=== PATIENT | female | born 1940 | race Caucasian/White ===

== ENCOUNTER → 2019-12-23 10:40 | Outpatient (BNVA) | payer MEDICARE, MEDICAID, SELFPAY | PROVIDERS: PCP Internal Medicine; Referring Provider Internal Medicine; Visit Provider Nurse Practitioner Gerontology | DX: E11.65 Type 2 diabetes mellitus with hyperglycemia (principal); E11.40 Type 2 diabetes mellitus with diabetic neuropathy, unspecified; I10 Essential (primary) hypertension; E78.5 Hyperlipidemia, unspecified; Z79.4 Long term (current) use of insulin | CPT/HCPCS: 82947; 95250; 99213 ==

== ENCOUNTER → 2020-01-06 11:05 | Outpatient (BNVA) | payer MEDICARE, MEDICAID, SELFPAY | PROVIDERS: PCP Internal Medicine; Referring Provider Internal Medicine; Visit Provider Nurse Practitioner Gerontology | DX: E11.65 Type 2 diabetes mellitus with hyperglycemia (principal); I10 Essential (primary) hypertension; E78.5 Hyperlipidemia, unspecified; Z79.4 Long term (current) use of insulin | CPT/HCPCS: 82947; 99213 ==

== ENCOUNTER → 2020-02-10 10:06 | Outpatient (BNVA) | payer MEDICARE, MEDICAID, SELFPAY | PROVIDERS: PCP Internal Medicine; Referring Provider Internal Medicine; Visit Provider Nurse Practitioner | DX: R63.4 Abnormal weight loss (principal); R63.0 Anorexia; G30.9 Alzheimer's disease, unspecified; F02.80 Dementia in other diseases classified elsewhere, unspecified severity, without behavioral disturbance, psychotic disturbance, mood disturbance, and anxiety | CPT/HCPCS: 99212; Q3014 ==

== ENCOUNTER → 2020-03-10 10:34 | Outpatient (BNVA) | payer MEDICARE, MEDICAID, SELFPAY | PROVIDERS: PCP Internal Medicine; Visit Provider Nurse Practitioner Gerontology | DX: E11.65 Type 2 diabetes mellitus with hyperglycemia (principal); E11.40 Type 2 diabetes mellitus with diabetic neuropathy, unspecified; Z79.4 Long term (current) use of insulin; I10 Essential (primary) hypertension; E78.5 Hyperlipidemia, unspecified | CPT/HCPCS: Q3014 ==

== ENCOUNTER → 2020-04-13 08:34 | Outpatient (BNVA) | payer MEDICARE, MEDICAID, SELFPAY | PROVIDERS: PCP Internal Medicine; Visit Provider Nurse Practitioner Gerontology | DX: E11.65 Type 2 diabetes mellitus with hyperglycemia (principal); Z79.4 Long term (current) use of insulin; I10 Essential (primary) hypertension; E78.5 Hyperlipidemia, unspecified | CPT/HCPCS: 99212; Q3014 ==

== ENCOUNTER 2020-05-25 15:01 | Outpatient (REF) | payer MEDICARE, MEDICAID, SELFPAY ==
--- NOTE | ~2020-05-25 | MM_ITS ---
EXAMINATION: MM SCREENING DIGITAL BREAST TOMOSYNTHESIS, BILATERAL CLINICAL INFORMATION: Screening. Asymptomatic. The lifetime risk of breast cancer based on the Tyrer-Cuzick Model is 1.2%. COMPARISON: Mammography: April 24, 2019 and studies dating back to October 11, 2011 TECHNIQUE: Digital breast tomosynthesis is performed in both the craniocaudal and mediolateral oblique views along with computer-aided detection (CAD). Synthesized 2D images are generated from the tomosynthesis. Additional left exaggerated craniocaudal view performed. FINDINGS: There are scattered areas of fibroglandular density (ACR BI-RADS breast composition Category b). There are no significant masses, abnormal calcifications, or other abnormalities. MM/MM tomosynthesis screening BI IMPRESSION: There are no significant changes from prior study. ASSESSMENT: BI-RADS 1: Negative RECOMMENDATION: Routine annual mammography screening. This patient's information was entered into a reminder system with a target due date for their next mammogram.
== END 2020-05-25 15:02 | disposition home or self-care (01) ==
LOC: HO.MAMMO 15:01
PROVIDERS: Visit Provider Internal Medicine
DX: Z12.31 Encounter for screening mammogram for malignant neoplasm of breast (principal)
CPT/HCPCS: 77063; 77067

== ENCOUNTER → 2020-07-27 11:07 | Outpatient (BNVA) | payer MEDICARE, MEDICAID, SELFPAY | PROVIDERS: PCP Internal Medicine; Referring Provider Internal Medicine; Visit Provider Nurse Practitioner | DX: G30.9 Alzheimer's disease, unspecified (principal); F02.80 Dementia in other diseases classified elsewhere, unspecified severity, without behavioral disturbance, psychotic disturbance, mood disturbance, and anxiety; D12.6 Benign neoplasm of colon, unspecified; R63.0 Anorexia; R63.6 Underweight; R63.4 Abnormal weight loss | CPT/HCPCS: 99212 ==

== ENCOUNTER → 2020-08-20 14:05 | Outpatient (BNVA) | payer MEDICARE, MEDICAID, SELFPAY | PROVIDERS: PCP Internal Medicine; Visit Provider Nurse Practitioner Gerontology | DX: E11.65 Type 2 diabetes mellitus with hyperglycemia (principal); E11.42 Type 2 diabetes mellitus with diabetic polyneuropathy; E11.649 Type 2 diabetes mellitus with hypoglycemia without coma; I10 Essential (primary) hypertension; E78.5 Hyperlipidemia, unspecified; R41.0 Disorientation, unspecified; Z88.7 Allergy status to serum and vaccine; Z88.8 Allergy status to other drugs, medicaments and biological substances; Z98.51 Tubal ligation status; Z79.4 Long term (current) use of insulin; Z79.899 Other long term (current) drug therapy | CPT/HCPCS: 82947; 83036; 99212 ==

== ENCOUNTER 2020-08-21 10:51 | Outpatient (REF) | payer MEDICARE, MEDICAID, SELFPAY ==
[2020-08-21 11:28] LABS: Hematocrit 36.5 % (37-47); Hemoglobin 11.7 g/dl (12.0-16.0); Mean Corpuscular HGB Conc 32.1 g/dl (31.0-35.0); Mean Corpuscular Hemoglobin 31.1 pg (27.0-33.0); Mean Corpuscular Volume 97.1 fL (80-98); Platelet Count 274 X10*3/uL (160-400); Red Blood Count 3.76 X10*6/uL (4.20-5.50); Red Cell Distribution Width 13.3 % (11.0-16.0); White Blood Count 8.9 X10*3/uL (4.8-10.8)
[2020-08-21 11:30] LABS: Estimated Average Glucose 143 mg/dL; Hemoglobin A1c % 6.6 %
[2020-08-21 11:46] LABS: Alanine Aminotransferase 30 U/L (0-31); Albumin Level 4.3 g/dL (3.5-5.0); Alkaline Phosphatase 73 U/L (39-117); Anion Gap 16 (12-20); Aspartate Amino Transferase 24 U/L (5-31); Bilirubin Total 0.7 mg/dL (0.0-1.0); Blood Urea Nitrogen 13 mg/dL (9-16); Calcium 9.9 mg/dL (8.4-10.2); Carbon Dioxide 21 mmol/L (22-29); Chloride 108 mmol/L (96-108); Cholesterol 125 mg/dL; Estimated Glomerular Filt Rate 50; Glucose Fasting 118 mg/dL (60-99); HDL Cholesterol 43 mg/dL; LDL Cholesterol Calculated 43 mg/dl; Potassium 4.3 mmol/L (3.3-5.1); Sodium 141 mmol/L (135-145); Total Protein 7.3 g/dL (6.5-8.0); Triglycerides 195 mg/dL
[2020-08-21 11:51] LABS: Band Neutrophils Percent 1 % (3-5); Eosinophils Absolute Manual 2.5 X10*3/UL (0.0-0.8); Eosinophils Percent Manual 28 % (0-4); Lymphocytes Absolute Manual 3.2 X10*3/uL (0.6-4.8); Lymphocytes Percent Manual 36 % (20-40); Monocytes Absolute Manual 0.2 X10*3/uL (0.0-1.2); Monocytes Percent Manual 2 % (2-11); Neutrophils Percent Manual 33 % (45-73)
[2020-08-21 11:52] LABS: RBC Morphology NOTED
[2020-08-21 11:53] LABS: Acanthocytes 1+ (0-2) /OIF; Macrocytosis 1+ (5-14) /OIF; Ovalocytes 1+ (5-14) /OIF; Platelet Estimate NORMAL (NORMAL); Platelet Morphology Comment NORMAL
[2020-08-21 12:05] LABS: Thyroid Stimulating Hormone 2.98 uIU/mL (0.32-4.0)
[2020-08-23 08:39] LABS: Folate 6.5 ng/mL (> or = 4.0); Vitamin B12 670 pg/mL (200-900)
[2020-08-27 13:52] LABS: Vitamin D 25-OH, D2 <4 ng/mL; Vitamin D 25-OH, D3 51 ng/mL; Vitamin D 25-OH, Total 51 ng/mL (30-100)
== END 2020-08-21 10:52 | disposition home or self-care (01) ==
LOC: HO.LAB 10:51
PROVIDERS: Absent Provider Internal Medicine; PCP Internal Medicine; Visit Provider Nurse Practitioner Gerontology
DX: E11.65 Type 2 diabetes mellitus with hyperglycemia (principal); E55.9 Vitamin D deficiency, unspecified; R53.82 Chronic fatigue, unspecified; E11.40 Type 2 diabetes mellitus with diabetic neuropathy, unspecified; E78.5 Hyperlipidemia, unspecified; Z79.4 Long term (current) use of insulin
CPT/HCPCS: 36415; 80053; 80061; 82306; 82607; 82746; 83036; 84443; 85007; 85027

== ENCOUNTER 2020-08-23 | Outpatient (REF) | payer MEDICARE, MEDICAID, SELFPAY ==
[2020-08-24 10:07] LABS: Microalbum/Creatinine Ratio Ur 19.8 ug/mg cr
== END 2020-08-23 00:01 | disposition home or self-care (01) ==
LOC: HO.LNP
PROVIDERS: Visit Provider Internal Medicine
DX: E11.65 Type 2 diabetes mellitus with hyperglycemia (principal)
CPT/HCPCS: 82043

== ENCOUNTER 2020-08-24 08:55 | Outpatient (REF) | payer MEDICARE, MEDICAID, SELFPAY | END 2020-08-24 08:56 | disposition home or self-care (01) | LOC: HO.LNP 08:55 | PROVIDERS: Visit Provider Internal Medicine | DX: Z13.89 Encounter for screening for other disorder (principal) ==

== ENCOUNTER → 2020-08-30 13:30 | Outpatient (BNVA) | payer MEDICARE, MEDICAID, SELFPAY | PROVIDERS: PCP Internal Medicine; Visit Provider Nurse Practitioner Gerontology | DX: E11.649 Type 2 diabetes mellitus with hypoglycemia without coma (principal); E78.5 Hyperlipidemia, unspecified; I10 Essential (primary) hypertension | CPT/HCPCS: 82947; 99212 ==

== ENCOUNTER 2021-01-23 12:10 | Emergency (ER) | payer MEDICARE, MEDICAID, SELFPAY ==
--- NOTE | ~2021-01-23 | CT_ITS ---
EXAMINATION: CT HEAD/BRAIN WITHOUT CONTRAST CLINICAL INFORMATION: Fall COMPARISON: April 22, 2015 and August 10, 2018 TECHNIQUE: CT scanning from base of skull to vertex performed without IV contrast administration. This CT examination was performed using dose optimization techniques as appropriate, variously including the following: *Automated exposure control *Adjustment of mA and/or kV according to patient size (this includes techniques or standardized protocols for targeted exams where dose is matched to indication/reason for exam; i.e. extremities or head) *Use of iterative reconstruction technique DLP: 546.9 mGy-cm. FINDINGS: The ventricles, sulci, and cisterns are prominent symmetrically and it was a large amount of periventricular white matter low density consistent with microangiopathy and generalized atrophy. No abnormal extra-axial fluid collection or intracranial hemorrhage is seen. No significant mass effect or midline structure shift is evident. There is a small left frontal scalp hematoma. There are lacunar infarct seen involving the anterior limbs of the internal capsules bilaterally. Paranasal sinuses and mastoid air cells essentially aerated. CT/CT cervical spine wo con IMPRESSION: No acute intracranial abnormality. Microangiopathy with generalized atrophy. EXAMINATION: CT OF THE CERVICAL SPINE CLINICAL INFORMATION: Fall COMPARISON: None. TECHNIQUE: Thin helical images with sagittal and coronal reformats. This CT examination was performed using dose optimization techniques as appropriate, variously including the following: *Automated exposure control *Adjustment of mA and/or kV according to patient size (this includes techniques or standardized protocols for targeted exams where dose is matched to indication/reason for exam; i.e. extremities or head) *Use of iterative reconstruction technique DOSE: DLP 404.58 mGy-cm FINDINGS: No abnormal prevertebral soft tissue swelling is seen. The paraspinal fat planes are maintained. No acute cervical spine fracture is identified. There is some pannus calcification seen C1-C2. There is disc space narrowing seen at the C2-C3, C3-C4, and C4-C5 disc spaces. There are posterior midline partially calcified disc bulges C2-C6. There is mild spurring joints of Luschka at multiple levels but without significant bony neural foraminal encroachment seen. IMPRESSION: No acute cervical spine fracture. Cervical spondylosis as described. EXAMINATION: CT OF THE facial bones CLINICAL INFORMATION: Fall COMPARISON: None. TECHNIQUE: Thin helical images with sagittal and coronal reformats. This CT examination was performed using dose optimization techniques as appropriate, variously including the following: *Automated exposure control *Adjustment of mA and/or kV according to patient size (this includes techniques or standardized protocols for targeted exams where dose is matched to indication/reason for exam; i.e. extremities or head) *Use of iterative reconstruction technique DOSE: DLP 210.31 mGy-cm FINDINGS: Left frontal scalp hematoma. No acute fracture of the facial bones identified. No orbital intraconal abnormality is seen. Pterygoid plates intact. No significant temporal mandibular joint abnormalities seen. No air-fluid levels in paranasal sinuses. There is some mild mucosal thickening seen within a few right ethmoid air cells. Ostiomeatal complexes are patent. There is deviation of calcified nasal septum to the left. Maxillary spine intact. No acute nasal bone fracture evident. IMPRESSION: No acute facial bone fracture.
[2021-01-23 12:24] VITALS: BP 153/80; PULSE 89; RESP 18; TEMP 35.8; O2SAT 98; BMI 20.1
--- NOTE | 2021-01-23 12:31 | ED.FALL ---
HPI - Fall General Chief Complaint: Fall Stated Complaint: fall - eye injury Time Seen by Provider: 01/23/21 12:11 Source: patient and family Mode of arrival: ambulatory Limitations: other (dementia) History of Present Illness complaint: fall Onset (ago): minute(s) Fall from: other (shower chair) Fall witnessed: no Place fall occurred: home Loss of consciousness: none Prolonged down time: no Symptoms prior to fall: other (daughter turned her back and patient slipped from shower chair) Location of injury: head and face Severity: mild Associated symptoms (after fall): other (contusion to face) Related Data Home Medications Medication Instructions Recorded Confirmed doxepin 25 mg capsule 25 mg PO BEDTIME 12/23/19 12/21/20 latanoprost 0.005 % eye drops 1 drp OPHTHALMIC (EYE) BEDTIME 12/23/19 12/21/20 metformin 500 mg tablet 500 mg PO BID tab 08/20/20 12/21/20 Previous Rx's Medication Instructions Recorded aspirin 81 mg tablet,delayed 81 mg PO QAM 90 Days #90 tab 04/21/20 release lancets 33 gauge (OneTouch Delica 28 gauge MISCELLANEOUS TID 30 Days 06/12/20 Plus Lancet) #100 ea blood sugar diagnostic #200 ea 06/14/20 citalopram 10 mg tablet 10 mg PO QAM #90 tab 07/08/20 ferrous sulfate 325 mg (65 mg 325 mg PO QAM #90 tab 07/08/20 iron) tablet simvastatin 40 mg tablet 40 mg PO BEDTIME #90 tab 07/08/20 megestrol 20 mg tablet 20 mg PO BID #60 tab 07/27/20 donepezil 10 mg tablet 10 mg PO BEDTIME #90 tab 08/03/20 flash glucose sensor (FreeStyle #2 ea 08/03/20 Thom 2 Sensor) gabapentin 100 mg capsule 100 mg PO BEDTIME #90 cap 08/03/20 pen needle, diabetic 32 gauge x #150 ea 08/20/20 insulin lispro 100 unit/mL 3 unit (0.03 mL) SUBCUT TID #15 ml 08/24/20 subcutaneous pen (Humalog KwikPen (U-100) Insulin) memantine 10 mg tablet 10 mg PO BID #60 tab 09/21/20 insulin glargine 100 unit/mL (3 20 unit (0.2 mL) SUBCUT DAILY #15 01/04/21 mL) subcutaneous pen (Lantus ml Solostar U-100 Insulin) loratadine 10 mg tablet 10 mg PO QAM #90 tab 01/09/21 valsartan 40 mg tablet 20 mg PO QAM #45 tab 01/17/21 Allergies Allergy/AdvReac Type Severity Reaction Status Date / Time dulaglutide [Trulicity] Allergy Intermediate rash Verified 12/21/20 15:45 Influenza Virus Vaccines Allergy Intermediate SWELLING Verified 12/21/20 15:45 [INFLUENZA VIRUS VACCINES] insulin degludec Allergy Intermediate ? RASH Verified 12/21/20 15:45 [From TRESIBA FLEXTOUCH U-100] liraglutide [From Victoza] AdvReac Intermediate decrreased Verified 12/21/20 15:45 appetite Review of Systems Review of Systems: ROS unable to be obtained due to altered mental status PMFSH Past Medical History Attestation statement: The following information was validated with the patient. Medical History Alzheimer's dementia Anemia Appetite loss Arthritis Back pain Chronic fatigue Diabetes type 2, uncontrolled Essential hypertension Hyperlipidemia LDL goal <100 Neuropathy Osteoporosis Tendinitis Tubular adenoma of colon Type 2 diabetes mellitus with hyperglycemia Unsteady gait Weight loss Surgical History History of esophagogastroduodenoscopy Hx of breast surgery Hx of section Hx of colonoscopy Hx of elbow surgery Hx of eye surgery Hx of tubal ligation Family History Family History Father No problems noted. Mother Diabetes Social History Social History Household Members: Spouse and Children Housing: House Do you presently have visiting nurse or other home services: Yes ([employer]- Mon- Fri 8-3pm) Alcohol intake: never Patient Tobacco Use Status: Never used Tobacco Tobacco use type: Cigarette e-Cigarette/Vaping Use: Never Used Second Hand Smoke Exposure: No Advance Directives: No Advance Directives Information Provided: No service: No Current occupational status: disabled Physical Exam Vital Signs: Vital Signs: Last Vital Signs Temp 96.5 F L 01/23/21 12:24 Pulse 89 01/23/21 12:24 Resp 18 01/23/21 12:24 BP 153/80 H 01/23/21 12:24 Pulse Ox 98 01/23/21 12:24 Body Mass Index 20.1 Appearance: Alert. at baseline. No acute distress. Eyes: Pupils equal, round and reactive to light. L periorbital area large contusion with very minor superficial linear laceration 0.5cm ENT: Pharynx normal. Neck: Normal inspection. Neck supple. CVS: Normal heart rate and rhythm. Pulses normal. Respiratory: No respiratory distress. Breath sounds normal. Abdomen: Soft and nontender. Back: no trauma seen Skin: Skin warm and dry. Normal skin color. Normal skin turgor. Extremities: No lower extremity edema. No calf ttp no pain with axial loading Neuro: at baseline. No motor deficit. No sensory deficit. Course Course Course Narrative: at her baseline no change no vomiting Procedures Laceration Laceration 1: Site: face Side (If applicable): left Size (cm): 0.5 Description: linear Depth: simple, single layer Pre-repair: wound explored Skin layer closed with: other (steri strips) MDM - Fall MDM Narrative Medical decision making narrative: 80 yo female no AC therapy fully dependent on family for care daughter turned her back to help another family member and the patient slipped from shower chair and hit her head - no LOC at baseline will need CT head/facial bones, CT cspine for trauma. No other injuries found with exam - dispo per results and findings. Discharge Plan Discharge Clinical Impression: Head injury Qualifiers: Encounter type: initial encounter Qualified Code(s): S09.90XA - Unspecified injury of head, initial encounter Contusion of face Qualifiers: Encounter type: initial encounter Qualified Code(s): S00.83XA - Contusion of other part of head, initial encounter Abrasion of face Qualifiers: Encounter type: initial encounter Qualified Code(s): S00.81XA - Abrasion of other part of head, initial encounter Patient Disposition: Home, Self-Care Instructions: Head Injury (ED), Abrasion (ED), Steristrips (ED), Facial Contusion (ED) Additional Instructions: return to ED for any worsening symptoms or concerns steri strips will fall off it is okay to shower but avoid soaking or cleaning them with soap if possible watch for redness yellow drainage steri strips usually fall off in 7 days Prescriptions: No Action aspirin 81 mg tablet,delayed release (DR/EC) 81 mg PO QAM 90 Days Qty: 90 RF: 3 lancets [OneTouch Delica Plus Lancet] 33 gauge misc 28 gauge miscellaneous TID 30 Days Qty: 100 RF: 11 (DME) blood sugar diagnostic Strip See Rx Instructions ea Not Applicable TID Qty: 200 RF: 6 citalopram 10 mg tablet 10 mg PO QAM Qty: 90 RF: 1 simvastatin 40 mg tablet 40 mg PO BEDTIME Qty: 90 RF: 3 ferrous sulfate 325 mg (65 mg iron) tablet 325 mg PO QAM Qty: 90 RF: 3 donepezil 10 mg tablet 10 mg PO BEDTIME Qty: 90 RF: 1 gabapentin 100 mg capsule 100 mg PO BEDTIME Qty: 90 RF: 2 (DME) FreeStyle Thom 2 Sensor Kit See Rx Instructions .ROUTE .MEDSUPPLY Qty: 2 RF: 11 insulin lispro [Humalog KwikPen Insulin] 100 unit/mL insulin pen 3 unit subcut TID Qty: 15 RF: 2 memantine 10 mg tablet 10 mg PO BID Qty: 60 RF: 8 Lantus Solostar U-100 Insulin 100 unit/mL (3 mL) insulin pen 20 unit subcut DAILY Qty: 15 RF: 4 loratadine 10 mg tablet 10 mg PO QAM Qty: 90 RF: 3 valsartan 40 mg tablet 20 mg PO QAM Qty: 45 RF: 3 doxepin 25 mg capsule 25 mg PO BEDTIME RF: 0 latanoprost 0.005 % drops 1 drp ophthalmic (eye) BEDTIME RF: 0 megestrol 20 mg tablet 20 mg PO BID Qty: 60 RF: 6 metformin 500 mg tablet 500 mg PO BID RF: 0 (DME) pen needle, diabetic 32 gauge x 5/32 needle See Rx Instructions ea subcut DAILY Qty: 150 RF: 7
[2021-01-23] MEDS: Acetaminophen 325 MG TABLET 650 MG PO (13:31)
== END 2021-01-23 15:40 | disposition home or self-care (01) ==
PROVIDERS: Emergency Provider Emergency Medicine; PCP Internal Medicine
DX: S00.12XA Contusion of left eyelid and periocular area, initial encounter (principal); S09.90XA Unspecified injury of head, initial encounter; S00.81XA Abrasion of other part of head, initial encounter; W18.2XXA Fall in (into) shower or empty bathtub, initial encounter; G30.9 Alzheimer's disease, unspecified; F02.80 Dementia in other diseases classified elsewhere, unspecified severity, without behavioral disturbance, psychotic disturbance, mood disturbance, and anxiety; E11.9 Type 2 diabetes mellitus without complications; I10 Essential (primary) hypertension; Y93.E1 Activity, personal bathing and showering; Y92.012 Bathroom of single-family (private) house as the place of occurrence of the external cause; Y99.9 Unspecified external cause status
CPT/HCPCS: 70450; 70486; 72125; 99284

== ENCOUNTER → 2021-05-04 10:47 | Outpatient (BNVA) | payer MEDICARE, MEDICAID, SELFPAY | PROVIDERS: PCP Internal Medicine; Visit Provider Nurse Practitioner Gerontology | DX: E11.649 Type 2 diabetes mellitus with hypoglycemia without coma (principal); E78.5 Hyperlipidemia, unspecified; I10 Essential (primary) hypertension; L60.0 Ingrowing nail | CPT/HCPCS: 82947; 83036; 99212 ==